=== PATIENT | female | born 1985 | race Caucasian/White ===

== ENCOUNTER 2018-01-25 16:21 | Emergency (ER) | payer MEDICAID ==
[2018-01-25] MEDS ORDERED: NORMAL SALINE 1000 ML 1,000 ML IV ONE (17:07)
--- NOTE | 2018-01-25 17:07 | ER Document Report ---
ED Medical Screen (RME) - General Chief Complaint: Passed Out Prior to Arrival Stated Complaint: SYNCOPAL EPISODE Time Seen by Provider: 01/25/18 17:01 Notes: Patient is a 32-year-old female that presents to the emergency department for chief complaint of syncopal episode. Patient states that she stood up from the couch, and then walked into the bathroom and then came out and walked towards the front door, took a few steps, and then she tried to grab onto the wall and then she passed out, she was feeling lightheaded just prior to this episode, no vomiting, this is not witnessed, she woke up and drink some water and then came to the emergency department.. ROS: Other than noted above, the 12 point review of systems was reviewed with the patient and were negative, all pertinent findings are included in the HPI. PHYSICAL EXAMINATION: Vital signs reviewed. GENERAL: Well-appearing, well-nourished and in no acute distress. HEAD: Atraumatic, normocephalic. EYES: Pupils equal round extraocular movements intact, conjunctiva are normal. ENT: Nares patent NECK: Normal range of motion CV: Heart regular rate and rhythm LUNGS: No respiratory distress Musculoskeletal: Normal range of motion NEUROLOGICAL: Normal speech PSYCH: Normal mood, normal affect. MDM: Patient seen and examined for rapid initial assessment. Vital signs reviewed. A comprehensive ED assessment and evaluation of the patient, analysis of test results and completion of the medical decision making process will be conducted by additional ED providers. *Note is created using voice recognition software and may contain spelling, syntax or grammatical errors. TRAVEL OUTSIDE OF THE [place] IN LAST 30 DAYS: No - Related Data Allergies/Adverse Reactions: No Known Allergies Allergy (Verified 01/25/18 16:23) Past Medical History - Social History Chew tobacco use (# tins/day): No Frequency of alcohol use: None Drug Abuse: None Renal/ Medical History: Denies: Hx Peritoneal Dialysis Past Surgical History: Reports: Hx Abdominal Surgery Physical Exam - Vital signs Vitals: Temp Pulse Resp BP Pulse Ox 97.9 F 75 18 113/70 100 01/25/18 16:26 01/25/18 16:26 01/25/18 16:26 01/25/18 16:26 01/25/18 16:26 Course - Vital Signs Vital signs: Temp Pulse Resp BP Pulse Ox 97.9 F 75 18 113/70 100 01/25/18 16:26 01/25/18 16:26 01/25/18 16:26 01/25/18 16:26 01/25/18 16:26
[2018-01-25 17:51] LABS: APPEARANCE,URINE SLIGHTLY-CLOUDY; BILIRUBIN,URINE NEGATIVE (NEGATIVE); COLOR,URINE YELLOW; GLUCOSE, URINE NEGATIVE (NEGATIVE); KETONES,URINE NEGATIVE (NEGATIVE); LEUKOCYTE ESTERASE,URINE NEGATIVE (NEGATIVE); NITRITE,URINE NEGATIVE (NEGATIVE); PROTEIN,URINE NEGATIVE (NEGATIVE); URINE SPECIFIC GRAVITY 1.021
--- NOTE | 2018-01-25 18:00 | RADIOLOGY REPORT (SQ) ---
EXAM DESCRIPTION: CHEST SINGLE VIEW COMPLETED DATE/TIME: 01/25/2018 5:51 pm REASON FOR STUDY: syncope COMPARISON: None. EXAM PARAMETERS: NUMBER OF VIEWS: One view. TECHNIQUE: Single frontal radiographic view of the chest acquired. RADIATION DOSE: NA LIMITATIONS: None. FINDINGS: LUNGS AND PLEURA: No opacities, masses or pneumothorax. No pleural effusion. MEDIASTINUM AND HILAR STRUCTURES: No masses. Contour normal. HEART AND VASCULAR STRUCTURES: Heart normal in size. Normal vasculature. BONES: No acute findings. HARDWARE: None in the chest. OTHER: No other significant finding. IMPRESSION: NO ACUTE RADIOGRAPHIC FINDING IN THE CHEST. TECHNICAL DOCUMENTATION: JOB ID: [id number] [employer]- All Rights Reserved Reading location - IP/workstation name: [email or web address]
--- NOTE | 2018-01-25 18:42 | ER Document Report ---
ED General - General Chief Complaint: Passed Out Prior to Arrival Stated Complaint: SYNCOPAL EPISODE Time Seen by Provider: 01/25/18 17:01 Mode of Arrival: Ambulatory Information source: Patient TRAVEL OUTSIDE OF THE [place] IN LAST 30 DAYS: No - HPI Notes: Patient is a 32-year-old female status post gastric sleeve surgery June 2017 with a 80 pound weight loss since that time presents to the emergency department with report that she has had some orthostatic dizziness previously over the course of the last couple months but states that today she was laying down on the couch and went to get up and felt lightheaded and dizzy and then had an apparent syncopal event where she leaned into the door and then woke up on the couch several feet away laying down. The patient reports a mild headache. She did not lose continence or bite her tongue. The patient reports no fever or chills. She had nausea but no vomiting. She denies any neck stiffness or neck pain or back pain. She states the headache is mild and not the worst headache of her life. She states she should be on B12, iron, calcium and a multivitamin but she is not taking them. She last ate a small meal 3 hours prior. She denies any current numbness or paresthesia or focal weakness. - Related Data Allergies/Adverse Reactions: No Known Allergies Allergy (Verified 01/25/18 16:23) Past Medical History - General Information source: Patient - Social History Smoking Status: Current Every Day Smoker Chew tobacco use (# tins/day): No Frequency of alcohol use: None Drug Abuse: None Lives with: Family Family History: Reviewed & Not Pertinent Patient has suicidal ideation: No Patient has homicidal ideation: No - Medical History Notes: Patient does report a history of gestational diabetes. Renal/ Medical History: Denies: Hx Peritoneal Dialysis Past Surgical History: Reports: Hx Abdominal Surgery Review of Systems - Review of Systems -: Yes All other systems reviewed and negative Physical Exam - Vital signs Vitals: Temp Pulse Resp BP Pulse Ox 97.9 F 75 18 113/70 100 01/25/18 16:26 01/25/18 16:26 01/25/18 16:26 01/25/18 16:26 01/25/18 16:26 - Notes Notes: PHYSICAL EXAMINATION: GENERAL: Well-appearing, well-nourished and in no acute distress. HEAD: Atraumatic, normocephalic. No temporal arterial tenderness. No TMJ joint tenderness. No maxillary or frontal sinus tenderness. EYES: Pupils equal round and reactive to light, extraocular movements intact, conjunctiva are normal. ENT: Nares patent, oropharynx clear without exudates. Moist mucous membranes. NECK: Normal range of motion, supple without lymphadenopathy. No carotid bruits. LUNGS: Breath sounds clear to auscultation bilaterally and equal. No wheezes rales or rhonchi. HEART: Regular rate and rhythm without murmurs ABDOMEN: Soft, nontender, nondistended abdomen. No guarding, no rebound. No masses appreciated. Surgical scars well-healed. Female : deferred Musculoskeletal: Normal range of motion, no pitting or edema. No cyanosis. NEUROLOGICAL: Cranial nerves grossly intact. Normal speech, normal gait. Normal sensory, motor exams no cerebellar ataxia.. PSYCH: Normal mood, normal affect. SKIN: Warm, Dry, normal turgor, no rashes or lesions noted. Course - Re-evaluation Re-evalutation: 01/25/18 18:42 Patient was given normal saline 1 L bolus. Orthostatics were normal, the patient denied feeling lightheaded. 01/25/18 20:46 no evidence for pneumonia or acute intracranial injury or CVA or electrolyte imbalance or anemia. MCV slightly low but iron studies and other studies appear normal. Lab work very reassuring. A copy was given to the patient. Findings fit more so with a vasovagal type of episode, possibly related to relatively low blood pressures and the recent weight loss. Patient was counseled about the need to observe a supine position should this happen again. 01/25/18 20:47 She was ambulatory without complaint and felt stable for discharge. - Vital Signs Vital signs: Temp Pulse Resp BP Pulse Ox 97.9 F 68 12 126/79 H 100 01/25/18 16:26 01/25/18 18:07 01/25/18 20:26 01/25/18 20:26 01/25/18 20:26 - Laboratory Result Diagrams: 01/25/18 18:20 01/25/18 18:20 Laboratory results interpreted by me: 01/25/18 01/25/18 01/25/18 17:41 18:20 18:20 MCV 76 L MCH 26.4 L BUN 21 H Urine Urobilinogen 2.0 H - EKG Interpretation by Me EKG shows normal: Sinus rhythm Additional EKG results interpreted by me: 01/25/18 18:41 EKG as interpreted by me showed normal sinus rhythm heart rate of 72. There is no gross evidence for acute MA or ischemia. No arrhythmia noted. No old EKG available for comparison. Discharge - Discharge Clinical Impression: Syncope Qualifiers: Syncope type: vasovagal syncope Qualified Code(s): R55 - Syncope and collapse Condition: Stable Disposition: HOME, SELF-CARE Instructions: Syncopal Episode ([facility]), Family Physicians / Practices Additional Instructions: Drink plenty of fluids. Stand up slowly. Lay down flat immediately if you feel lightheaded. Consider adding salt to the diet as needed.
[2018-01-25 18:44] LABS: ABSOLUTE EOSINOPHILS # (AUTO) 0.1 10^3/uL (0.0-0.6); ABSOLUTE LYMPHOCYTES (AUTO) 1.2 10^3/uL (0.5-4.7); ABSOLUTE MONOCYTES (AUTO) 0.5 10^3/uL (0.1-1.4); ABSOLUTE NEUT (AUTO) 4.2 10^3/uL (1.7-8.2); BASOPHILS % (AUTO) 0.3 % (0-2); EOSINOPHILS % (AUTO) 1.9 % (0-6); HEMATOCRIT 38.5 % (36.0-47.0); HEMOGLOBIN 13.3 g/dL (12.0-15.5); LYMPHOCYTES % (AUTO) 19.6 % (13-45); MEAN CORPUSCULAR HEMOGLOBIN 26.4 pg (27.0-33.4); MEAN CORPUSCULAR HGB CONC 34.7 g/dL (32.0-36.0); MEAN CORPUSCULAR VOLUME 76 fl (80-97); MONOCYTES % (AUTO) 7.8 % (3-13); PLATELET COUNT 251 10^3/uL (150-450); RED BLOOD COUNT 5.05 10^6/uL (3.72-5.28); RED CELL DISTRIBUTION WIDTH 13.9 % (11.5-14.0); SEGMENTED NEUTROPHILS % (AUTO) 70.4 % (42-78); TOTAL CELLS COUNTED % (AUTO) 100 %
--- NOTE | 2018-01-25 19:07 | RADIOLOGY REPORT (SQ) ---
EXAM DESCRIPTION: CT HEAD WITHOUT COMPLETED DATE/TIME: 01/25/2018 6:57 pm REASON FOR STUDY: headache, syncope COMPARISON: None. TECHNIQUE: Axial images acquired through the brain without intravenous contrast. Images reviewed wi th bone, brain and subdural windows. Additional sagittal and coronal reconstructions were generated. Images stored on PACS. All CT scanners at this facility use dose modulation, iterative reconstruction, and/or weight based d osing when appropriate to reduce radiation dose to as low as reasonably achievable (ALARA). [facility]: Dose Right [facility]: CareDose [facility]: Dose Right [facility]: Teradose 4D [facility]: [employer] RADIATION DOSE: CT Rad equipment meets quality standard of care and radiation dose reduction techniq ues were employed. CTDIvol: 53.2 mGy. DLP: 1070 mGy-cm. mGy. LIMITATIONS: None. FINDINGS: VENTRICLES: Normal size and contour. CEREBRUM: No masses. No hemorrhage. No midline shift. No evidence for acute infarction. Normal gra y/white matter differentiation. No areas of low density in the white matter. CEREBELLUM: No masses. No hemorrhage. No alteration of density. No evidence for acute infarction. EXTRAAXIAL SPACES: No fluid collections. No masses. ORBITS AND GLOBE: No intra- or extraconal masses. Normal contour of globe without masses. CALVARIUM: No fracture. PARANASAL SINUSES: No fluid or mucosal thickening. SOFT TISSUES: No mass or hematoma. OTHER: No other significant finding. IMPRESSION: NORMAL BRAIN CT WITHOUT CONTRAST. EVIDENCE OF ACUTE STROKE: NO. COMMENT: Quality ID # [id number]: Final reports with documentation of one or more dose reduction techniques (e.g., Automated exposure control, adjustment of the mA and/or kV according to patient size, use of iterative reconstruction technique) TECHNICAL DOCUMENTATION: JOB ID: [id number] [employer]- All Rights Reserved Reading location - IP/workstation name: [email or web address]
[2018-01-25 19:08] LABS: ALANINE AMINOTRANSFERASE 17 U/L (9-52); ALBUMIN 4.7 g/dL (3.5-5.0); ALKALINE PHOSPHATASE 59 U/L (38-126); ANION GAP 11 (5-19); ASPARTATE AMINO TRANSFERASE 23 U/L (14-36); BILIRUBIN,DIRECT 0.3 mg/dL (0.0-0.4); BILIRUBIN,TOTAL 0.6 mg/dL (0.2-1.3); BLOOD UREA NITROGEN 21 mg/dL (7-20); CALCIUM 10.1 mg/dL (8.4-10.2); CARBON DIOXIDE 29 mmol/L (22-30); CHLORIDE 101 mmol/L (98-107); GLUCOSE 90 mg/dL (75-110); POTASSIUM 4.4 mmol/L (3.6-5.0); TOTAL PROTEIN 7.8 g/dL (6.3-8.2)
[2018-01-25 19:23] LABS: IRON(TIBC) 55.7 ug/dL (37-170)
[2018-01-25 20:34] VITALS: BP 126/79
--- NOTE | 2018-01-25 21:09 | EKG REPORT ---
SEVERITY:- NORMAL ECG - SINUS RHYTHM : Confirmed by: Evelyn Llamas MD 25-Jan-2018 21:08:27
== END 2018-01-25 20:53 | disposition home or self-care (01) ==
LOC: ER 16:21
DX: R55 Syncope and collapse (principal); R51 Headache; R11.0 Nausea; T45.2X6A Underdosing of vitamins, initial encounter; T45.4X6A Underdosing of iron and its compounds, initial encounter; T50.3X6A Underdosing of electrolytic, caloric and water-balance agents, initial encounter; Z91.128 Patient's intentional underdosing of medication regimen for other reason; Z91.14 Patient's other noncompliance with medication regimen; Z98.84 Bariatric surgery status; F17.200 Nicotine dependence, unspecified, uncomplicated; Z86.32 Personal history of gestational diabetes
CPT/HCPCS: 93005; 99285; 96360; 36415; 82962; 82607; 83540; 83550; 83735; 84703; 85025; 80053; 81001; 84484; 71045; 70450; 93010; J7030

== ENCOUNTER 2018-03-21 02:24 | Emergency (ER) | payer MEDICAID ==
[2018-03-21 02:33] VITALS: BP 119/80
[2018-03-21] MEDS ORDERED: KETOROLAC TROMETHAMINE 60 MG/2 ML SDV IM ONE (02:57)
--- NOTE | 2018-03-21 03:00 | ER Document Report ---
HPI - HPI Patient complains to provider of: left shoulder pain Time Seen by Provider: 03/21/18 02:40 Pain Level: 5 Context: Patient is a 33-year-old female that comes to the emergency department with chief complaint of left shoulder pain. She states that when she woke up this morning her shoulder at the back near her neck and shoulder blade felt tight, this has become much worse, she is a lot of pain with movement, she has radiating pain down her arm intermittently. 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 She states that it feels like something is tightening the muscle and it occasionally becomes very painful. Past medical history of gastric sleeve, anxiety. - REPRODUCTIVE Reproductive: DENIES: : Past Medical History - General Information source: Patient - Social History Smoking Status: Never Smoker Frequency of alcohol use: None Drug Abuse: None Lives with: Family Family History: Reviewed & Not Pertinent Renal/ Medical History: Denies: Hx Peritoneal Dialysis Past Surgical History: Reports: Hx Abdominal Surgery - Immunizations Immunizations up to date: Yes Hx Diphtheria, Pertussis, Tetanus Vaccination: Yes Vertical Provider Document - CONSTITUTIONAL General Appearance: WD/WN. negative: No Apparent Distress - Patient holding her left arm close to her body, has obvious pain with movement - INFECTION CONTROL TRAVEL OUTSIDE OF THE [place] IN LAST 30 DAYS: No - HEENT HEENT: Atraumatic, Normocephalic - NECK Neck: Normal Inspection - RESPIRATORY Respiratory: Breath Sounds Normal, No Respiratory Distress - CARDIOVASCULAR Cardiovascular: Regular Rate, Regular Rhythm - GI/ABDOMEN Gastrointestinal: Abdomen Soft, Abdomen Non-Tender - BACK Back: negative: Normal Inspection - Pain over the left scapular border, left trapezius muscles extending up to the left paracervical muscles. Pain with turning the head to the right with slightly decreased range of motion of the neck. Normal flexion and extension of the neck. No midline tenderness of the back. No saddle anesthesia. Pain with movement of the left arm/shoulder. Normal distal neurovascular exam. 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 - MUSCULOSKELETAL/EXTREMETIES Musculoskeletal/Extremeties: MAEW, FROM, Non-Tender - NEURO Level of Consciousness: Awake, Alert, Appropriate - DERM Integumentary: Warm, Dry, No Rash Course - Re-evaluation Re-evalutation: Patient with very specific palpable muscle pain and area of muscle spasm over her left upper back along the left scapular border and extending up to the paracervical muscles of the neck. No neurological symptoms noted. No chest pain, shortness of breath, or concerning vital signs. Patient has much worse symptoms with range of motion and movement. Discussed options with patient. After discussion, patient drove herself, instead of giving dose of diazepam here and muscle relaxer at home, she will be provided with anti-inflammatory here and a small amount of diazepam at home for treatment of muscle spasm over the next several days. Divided with work-release after discussion. Discussed expectations, follow-up, and return precautions in detail. Discussed precautions with use of the medication. Patient states understanding and agreement. Stable at time of discharge. - Vital Signs Vital signs: Temp Pulse Resp BP Pulse Ox 97.9 F 86 18 119/80 97 03/21/18 02:29 03/21/18 02:29 03/21/18 02:29 03/21/18 02:29 03/21/18 02:29 Discharge - Discharge Clinical Impression: Upper back pain Condition: Stable Disposition: HOME, SELF-CARE Additional Instructions: Your examination is consistent with muscular spasm of the paracervical muscles and trapezius muscle on the left side. Recommendation is to continue her anti-inflammatory, take the medication as a muscle relaxer as prescribed, apply heat to the area, do gentle stretches, and rest. Avoid lifting/twisting. Symptoms should gradually resolve. Follow-up with primary care. Return if you worsen including swelling, numbness, fever, difficulty breathing, or any other concerning or worsening symptoms. Prescriptions: Diazepam [Valium 5 mg Tablet] 1 - 2 tab PO TID PRN #10 tablet PRN Reason: Forms: Return to Work
== END 2018-03-21 03:18 | disposition home or self-care (01) ==
LOC: ER 02:24
DX: M62.830 Muscle spasm of back (principal); M25.512 Pain in left shoulder; Z98.84 Bariatric surgery status
CPT/HCPCS: 99283; 96372; J1885

== ENCOUNTER 2018-03-22 19:14 | Emergency (ER) | payer MEDICAID ==
[2018-03-22] MEDS ORDERED: MORPHINE SULFATE IR 15 MG TABLET PO ONE (23:32)
--- NOTE | 2018-03-23 00:32 | RADIOLOGY REPORT (SQ) ---
CLINICAL HISTORY: pain COMPARISON: None. 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 Joint spaces are preserved. Soft tissues are unremarkable. IMPRESSION: No acute osseous findings.
--- NOTE | 2018-03-23 00:37 | RADIOLOGY REPORT (SQ) ---
CLINICAL HISTORY: pain COMPARISON: None. 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 Joint spaces are preserved. Soft tissues are unremarkable. IMPRESSION: No acute osseous findings.
[2018-03-23] MEDS ORDERED: LIDOCAINE 5% (700 MG) TRANSDERMAL ADH..PATCH TP ONE (00:51)
--- NOTE | 2018-03-23 01:20 | ER Document Report ---
ED General - General Chief Complaint: Arm Pain Stated Complaint: ARM PAIN Time Seen by Provider: 03/22/18 23:21 TRAVEL OUTSIDE OF THE [place] IN LAST 30 DAYS: No - HPI Patient complains to provider of: Left arm pain Notes: Patient was seen in ER yesterday for left shoulder pain left upper back pain was diagnosed with possible muscle spasm was sent home with Valium. Patient coming in today crying and very upset patient states pain has worsened. Patient upon my initial evaluation very upset of her weight did redirect. Patient to ensure reason why she came to the ER for evaluation. Patient denies any trauma states that she woke up in the morning with the left shoulder hurting. Patient denies any fever chills nausea vomiting diarrhea denies any chest pain. Patient states difficulty in extending her arm at the elbow and also raising the arm above her head. Patient is tearful upon my evaluation - Related Data Allergies/Adverse Reactions: No Known Allergies Allergy (Verified 01/25/18 16:23) Past Medical History - Social History Smoking Status: Unknown if Ever Smoked Family History: Reviewed & Not Pertinent Patient has suicidal ideation: No Patient has homicidal ideation: No Renal/ Medical History: Denies: Hx Peritoneal Dialysis Past Surgical History: Reports: Hx Abdominal Surgery - Immunizations Immunizations up to date: Yes Hx Diphtheria, Pertussis, Tetanus Vaccination: Yes Review of Systems - Review of Systems Constitutional: No symptoms reported EENT: No symptoms reported Cardiovascular: No symptoms reported Respiratory: No symptoms reported Gastrointestinal: No symptoms reported Genitourinary: No symptoms reported Female Genitourinary: No symptoms reported Musculoskeletal: Other - Arm pain Skin: No symptoms reported Hematologic/Lymphatic: No symptoms reported Neurological/Psychological: No symptoms reported -: Yes All other systems reviewed and negative Physical Exam - Vital signs Vitals: Temp Pulse Resp BP Pulse Ox 98.0 F 74 16 118/77 100 03/22/18 19:40 03/22/18 19:40 03/22/18 19:40 03/22/18 19:40 03/22/18 19:40 Interpretation: Normal - General General appearance: Appears well, Alert - HEENT Head: Normocephalic, Atraumatic Eyes: Normal Pupils: PERRL - Respiratory Respiratory status: No respiratory distress Chest status: Nontender Breath sounds: Normal Chest palpation: Normal - Cardiovascular Rhythm: Regular Heart sounds: Normal auscultation Murmur: No - Abdominal Inspection: Normal Distension: No distension Bowel sounds: Normal Tenderness: Nontender Organomegaly: No organomegaly - Back Back: Normal, Nontender - Extremities General upper extremity: Normal color, Normal temperature, Other - Right arm unaffected. Patient left arm is held at 90 degree angle flex at the elbow at 90 degrees. Patient has pain to palpation of the supraspinatus muscle going into the shoulder there is no pain to palpation of the deltoid patient also has pain at the distal biceps tendon. There is a small area of swelling or tissue collection that is not present on the right arm. Patient does have a history of gastric sleeve with significant amount of weight loss and redundant tissue of her extremities right and left. Patient has difficulty in abduction her shoulder above 90 degrees patient can supinate and pronate the left arm co mpartments are soft General lower extremity: Normal inspection, Nontender, Normal color, Normal ROM, Normal temperature, Normal weight bearing. No: Carlos A's sign - Neurological Neuro grossly intact: Yes Cognition: Normal Orientation: AAOx4 Evan Coma Scale Eye Opening: Spontaneous Evan Coma Scale Verbal: Oriented Evan Coma Scale Motor: Obeys Commands Evan Coma Scale Total: 15 Speech: Normal Motor strength normal: LUE, RUE, LLE, RLE Sensory: Normal - Psychological Associated symptoms: Normal affect, Normal mood - Skin Skin Temperature: Warm Skin Moisture: Dry Skin Color: Normal Course - Re-evaluation Re-evalutation: 03/23/18 03:48 Patient with supraspinatus tenderness and tenderness palpation of the distal bicep. Concern for possible rotator cuff injury versus biceps tendon injury. X-rays were performed which ruled out any osseous injury. I did attempt a bedside ultrasound evaluating the biceps tendon did not show any overt injury however this is made difficult due to some excess tissue overlying the area patient has pulses patient is able to supinate and pronate without difficulty. Unclear etiology for the patient's pain recommend a sling for support will give the patient oral morphine for pain control recommend follow-up with orthopedist - Vital Signs Vital signs: Temp Pulse Resp BP Pulse Ox 97.5 F 76 16 126/71 H 99 03/23/18 01:22 03/23/18 01:22 03/22/18 19:40 03/23/18 01:22 03/23/18 01:22 Discharge - Discharge Clinical Impression: Left arm pain Condition: Good Disposition: HOME, SELF-CARE Instructions: Arm Pain, Nonspecific ([facility]) Additional Instructions: Your x-rays today do not show any osseous injury to her shoulder your physical e xamination is concerning for possible rotator cuff injury or a biceps tendon injury. I would highly recommend continue to wear the sling while out in public he may take your arm out of sling and move it pain permitting through range of motion. I would recommend calling the orthopedic doctor listed and schedule follow-up appointment. Take Tylenol Motrin as prescribed take morphine for severe pain please be aware that the morphine can cause constipation would recommend [id number] stool softener. Return to ER symptoms worsen. Prescriptions: Ibuprofen [Motrin 600 mg Tablet] 600 mg PO Q8HP PRN #21 tablet PRN Reason: Morphine Sulfate [Morphine Ir 15 Mg Tablet] 15 mg PO TID #15 tablet Forms: Return to Work Referrals: KRISTIAN RODRIGUEZ MD [ACTIVE STAFF] - Follow up as needed
[2018-03-23 01:23] VITALS: BP 126/71
== END 2018-03-23 01:20 | disposition home or self-care (01) ==
LOC: ER 19:14
DX: M79.622 Pain in left upper arm (principal); M79.18 Myalgia, other site; M25.512 Pain in left shoulder; Z98.84 Bariatric surgery status
CPT/HCPCS: 99283; 73080; 73030; J3490

== ENCOUNTER → 2018-03-28 | Outpatient (CLI) | payer MEDICAID ==
--- NOTE | 2018-03-28 09:09 | RADIOLOGY REPORT (SQ) ---
EXAM DESCRIPTION: MRI CERVICAL SPINE WITHOUT COMPLETED DATE/TIME: 03/28/2018 8:40 am REASON FOR STUDY: RADIULOPATHY, CERVICAL REGION M54.12 RADICULOPATHY, CERVICAL REGION COMPARISON: None. TECHNIQUE: Sagittal and Axial imaging includes T1, T2, STIR and gradient echo sequences. LIMITATIONS: None. FINDINGS: ALIGNMENT: Straightening of cervical lordosis likely from muscle spasm VERTEBRAE: Intact. BONE MARROW: Normal. No marrow replacement or reactive changes. DISCS: Diffuse decreased T2 weighted intervertebral disc signal without disc space loss of height HARDWARE: None in the spine. CORD AND BASE OF BRAIN: Normal in size and signal intensity. SOFT TISSUES: No soft tissue masses. C1-C2: No significant spinal stenosis. C2-C3: No significant spinal stenosis or exit foraminal stenosis. C3-C4: There is a small central disc protrusion which effaces the ventral thecal sac and abuts the ve ntral cord without definite cord flattening. No central or foraminal stenosis. These changes are be st shown on axial T2 series 8, image 8/28 C4-C5: There is a small central disc protrusion which effaces the ventral thecal sac and abuts the ve ntral cord without significant cord flattening. No central or foraminal stenosis. This is best show n on axial series 8, image 12/28. C5-C6: Left paracentral disc bulge and bony spur effaces the leftward ventral thecal sac and abuts th e leftward ventral cord with minimal cord flattening. No abnormal intrinsic cord signal. Moderate l eft foraminal narrowing. No significant right foraminal stenosis. These findings are best demonstra cristiane on axial series 8, image 16/28. C6-C7: Mild diffuse posterior disc bulging partly effaces the ventral thecal sac without cord flatten ing or abnormal intrinsic cord signal. No significant central or foraminal stenosis. C7-T1: No significant spinal stenosis or exit foraminal stenosis. UPPER THORACIC: Incompletely imaged. No significant spinal stenosis or exit foraminal stenosis. OTHER: No other significant finding. IMPRESSION: Degenerative disc changes with left foraminal narrowing at C5-6. TECHNICAL DOCUMENTATION: JOB ID: [id number] [employer]- All Rights Reserved Reading location - IP/workstation name: [facility]
== END ==
LOC: RAD 03-25 12:38
PROVIDERS: ATTEND Family Medicine
DX: M54.12 Radiculopathy, cervical region (principal)
CPT/HCPCS: 72141